=== PATIENT | female | born 1940 | race Caucasian/White ===

== ENCOUNTER 2018-04-01 12:44 | Emergency (ER) | payer OTHER ==
[~2018-04-01] VITALS: Ht 154.9 cm; Wt 94.3 kg
[2018-04-01 12:49] VITALS: Ht 154.9 cm; Wt 94.3 kg
[2018-04-01 14:30] VITALS: BP 142/74
== END 2018-04-01 14:30 | disposition home or self-care (01) ==
LOC: ED 12:44
DX: S42.291A Other displaced fracture of upper end of right humerus, initial encounter for closed fracture (principal); M25.561 Pain in right knee; I10 Essential (primary) hypertension; W23.0XXA Caught, crushed, jammed, or pinched between moving objects, initial encounter; Y93.89 Activity, other specified; Y92.89 Other specified places as the place of occurrence of the external cause; Y99.8 Other external cause status
CPT/HCPCS: J3010; Q0092

== ENCOUNTER 2018-04-04 11:56 | Emergency (ER) | payer OTHER ==
[~2018-04-04] VITALS: Ht 154.9 cm; Wt 90.7 kg
[2018-04-04 12:10] VITALS: Ht 154.9 cm; Wt 90.7 kg
[2018-04-04 12:40] LABS: BASOPHIL % 0.2 % (0-2); PLATELET COUNT 206 x10^3mcL (130-400); RED CELL DISTRIBUTION WIDTH 13.1 % (11.5-14.5)
[2018-04-04 12:52] LABS: CARBON DIOXIDE 17.8 mmol/L (21-32); CHLORIDE SERUM 95 mmol/L (98-107); CREATININE SERUM 2.5 mg/dL (0.6-1.0); GLUCOSE SERUM 210 mg/dL (74-106); POTASSIUM SERUM 3.4 mmol/L (3.5-5.1); SODIUM SERUM 132 mmol/L (136-145)
[2018-04-04 12:56] LABS: ALKALINE PHOSPHATASE 68 U/L (46-116); ALT/SGPT 41 U/L (14-59); AMYLASE 38 U/L (25-115); AST/SGOT 43 U/L (15-37); BILIRUBIN TOTAL 0.5 mg/dL (0.20-1.00); CHOLESTEROL 148 mg/dL (<200); HDL CHOLESTEROL 57 mg/dL (40-60); LIPASE 115 IU/L (73-393); TOTAL PROTEIN, SERUM 7.1 g/dL (6.4-8.2)
[2018-04-04 12:58] LABS: ALBUMIN 3.1 g/dL (3.4-5.0)
[2018-04-04] MEDS ORDERED: LISINOPRIL2.5 MG (15:10)
[2018-04-04 18:34] VITALS: BP 112/56
== END 2018-04-04 18:34 | disposition short-term general hospital (02) ==
LOC: ED 11:56
PROVIDERS: Emergency Medicine
DX: I21.4 Non-ST elevation (NSTEMI) myocardial infarction (principal); I26.99 Other pulmonary embolism without acute cor pulmonale; E87.8 Other disorders of electrolyte and fluid balance, not elsewhere classified; I12.9 Hypertensive chronic kidney disease with stage 1 through stage 4 chronic kidney disease, or unspecified chronic kidney disease; N18.4 Chronic kidney disease, stage 4 (severe); E46 Unspecified protein-calorie malnutrition; D64.9 Anemia, unspecified; Z98.890 Other specified postprocedural states
CPT/HCPCS: 36600; 78598; A9540; J7040; Q0092